=== PATIENT | female | born 1960 | race Caucasian/White ===

== ENCOUNTER 2017-12-13 00:11 | Outpatient (CLI) | payer BC, SELFPAY ==
--- NOTE | 2017-12-13 16:00 | DI.MAMMO_ITS ---
SYMPTOMS/DIAGNOSIS: BREAST CANCER SCREENING MAMMOGRAM: Mammograms were interpreted according to the usual protocol including computer analysis with CAD system, tomosynthesis and C view imaging. The breast tissue is of moderately dense fibroglandular densities. There is no dominant mass. There are no suspicious calcifications and there has been no significant interval change when compared with prior images. SUMMARY: No evidence of malignancy, category 1. Yearly screening mammography is recommended. Breast density category C. MQSA ASSESSMENT OF FINDINGS: Negative. Category 1. Patient will receive a letter notifying them of these results. Bi-RADS category C. The breasts are heterogeneously dense, which may obscure small masses.
== END 2017-12-13 00:31 ==
PROVIDERS: PCP Family Medicine; Visit Provider Nurse Practitioner Family
DX: Z12.31 Encounter for screening mammogram for malignant neoplasm of breast (principal)
CPT/HCPCS: 77063; 77067

== ENCOUNTER 2017-12-15 01:40 | Outpatient (CLI) | payer BC, SELFPAY ==
[2017-12-15 07:30] LABS: Abs Immature Grans 0.02 k/cumm (0.0-0.09); Absolute Basophil Count 0.03 k/cumm (0.0-0.2); Absolute Eosinophil Count 0.12 k/cumm (0.0-0.7); Absolute Lymphocyte Count 1.62 k/cumm (1.2-3.4); Absolute Monocyte Count 0.32 k/cumm (0.11-0.7); Absolute Neutrophil Count 3.66 k/cumm (1.2-6.7); Basophils % 0.5; Eosinophils % 2.1; HCT 41.5 % (36.0-46.0); HGB 13.6 g/dL (12.0-15.5); Immature Grans % 0.3; Lymphocytes % 28.1; Mean Corp. HGB Concentration 32.8 g/dL (32.0-36.0); Mean Corpuscular Volume 91.4 fL (80-95); Mean Platelet Volume 8.3 fL (8.0-11.0); Monocytes % 5.5; Neutrophils % 63.5; Platelet Count 333 x1000/uL (130-400); RBC 4.54 m/cumm (4.00-5.20); RBC Distribution Width 13.2 % (11.7-14.6); White Blood Cell Count 5.77 k/cumm (4.4-10.8)
[2017-12-15 07:53] LABS: Anion Gap 6.5 mmol/L (3-11); BUN 23 mg/dL (7-18); CO2 30.5 mmol/L (21.0-32.0); CREATININE 0.97 mg/dL (0.55-1.02); Calcium 9.4 mg/dL (8.5-10.1); Chloride 102 mmol/L (98-107); Estimated GFR 58.78 (mL/min/1.73m2); FREE T4 1.02 ng/dL (0.76-1.46); Glucose 100 mg/dL (70-100); Potassium 4.5 mmol/L (3.5-5.1); Sodium 139 mmol/L (136-145); TSH 1.35 uIU/mL (0.358-3.74)
[2017-12-15 08:11] LABS: Cholesterol 207 mg/dL (50-200); HDL Cholesterol 90 mg/dL (40-60); LDL CHOLESTEROL 109 mg/dL (<100); Triglyceride 57 mg/dL (30-150)
[2017-12-15 08:15] LABS: Hemoglobin A1C 5.6 % (4.5-6.2)
== END 2017-12-15 02:00 ==
PROVIDERS: PCP Family Medicine; Visit Provider Nurse Practitioner Family
DX: E05.00 Thyrotoxicosis with diffuse goiter without thyrotoxic crisis or storm (principal); Z00.00 Encounter for general adult medical examination without abnormal findings; Z86.39 Personal history of other endocrine, nutritional and metabolic disease
CPT/HCPCS: 36415; 80048; 80061; 83721; 83036; 84439; 84443; 85025

== ENCOUNTER 2019-01-29 01:04 | Outpatient (CLI) | payer BC, SELFPAY ==
--- NOTE | 2019-01-29 17:09 | DI.DEXA_ITS ---
EXAM: XR DEXA BONE DENSITY W/WO ANGELES INDICATION: Early menopause in her 20s, postmenopausal, Z78.0. COMPARISON: No exams were available for comparison TECHNIQUE: 2D digital imaging was performed. FINDINGS: The ANGELES image shows no evidence of compression fractures. The bone mineral density measurements of the lumbar spine correspond to a total T-score of -0.8, in the normal range. The bone mineral densit y measurements of the left hip correspond to a total T-score of -1.4 and a femoral neck T-score of -1 .9, in the osteopenic range. The left forearm bone mineral density measurements correspond to a T-sc ore of the distal 3rd of -1.3, consistent with osteopenia. IMPRESSION: Normal bone mineral density of the lumbar spine. Osteopenia of the left hip and left forearm.
== END 2019-01-29 01:24 ==
PROVIDERS: PCP Nurse Practitioner Family; Visit Provider Nurse Practitioner Family
DX: M85.88 Other specified disorders of bone density and structure, other site (principal); Z78.0 Asymptomatic menopausal state
CPT/HCPCS: 77080

== ENCOUNTER 2019-07-12 17:47 | Emergency (ER) | payer OTHER, SELFPAY ==
[2019-07-12 17:54] VITALS: BP 130/88; PULSE 73; RESP 14; TEMP 36.9; O2SAT 95
[2019-07-12] MEDS: Povidone-Iodine Soln. 118 ML BTL (18:15)
--- NOTE | 2019-07-12 18:43 | ED.GENADUL_ITS ---
Discharge Plan Disposition Patient Disposition: HOME Condition: Stable Discharge Details Chief Complaint: Laceration Clinical Impression: Laceration of toe of right foot Primary Care Provider: Sharee Hinojosa ED Provider: Rupali Petty Home Meds and New Rx's Prescriptions: No Action Shingrix (PF) 50 mcg/0.5 mL suspension for reconstitution 0.5 ml IM ONCE Qty: 1 RF: 0 amoxicillin-pot clavulanate [Augmentin] 500-125 mg tablet 1 tab PO TID Qty: 30 RF: 0 loratadine-pseudoephedrine [Claritin-D 24 Hour] 10-240 mg tablet extended release 24 hr 1 tab PO DAILY PRN (Reason: allergy symptoms) RF: 0 Women's Daily Formula 1 EACH tablet 1 tab-cap PO DAILY RF: 0 calcium carbonate-vitamin D3 [Caltrate with Vitamin D3] 1 EACH tablet 1 ea PO BID RF: 0 doxycycline hyclate 100 mg capsule 100 mg PO BID Qty: 20 RF: 0 Discharge Instructions Instructions: Laceration (ED) Additional Instructions: Leave initial dressing in place for 24 hours. Then begin washing area with soap and water once or twice daily. Pat dry completely or allow to air dry. Apply topical antibiotic ointment and keep it dressed with either gauze or Band- Aid. Suture removal in 10 days. Be aware that you do have a partial tendon injury. For any weakness or difficulty moving the toe please have prompt reevaluation with orthopedics as discussed. Observe for any signs of infection, redness, swelling, pain or drainage. Return for any concerns of infection. Return for any worsening or concerns sooner if needed Referrals: Omar Horn MD [ [facility] STAFF PHYSICIAN] - Medical Decision Making 58-year-old patient presents with a right dorsal fifth toe laceration. Wound does have notable deep extension with partial laceration of the tendon however no focal weakness is noted with range of motion of the digit. Sensation is intact distally. Patient's tetanus is up-to-date. Injury occurred prior to arrival. Recommended x-ray to rule out glass. Patient declines, would prefer to return for any painful symptoms or lack of improvement. She has an extremely low suspicion of glass as there was a single piece of intact glass which lac erated her foot. Patient consents to sutures. Wound prepped, Betadine used, lidocaine 1% for local housing management representative, well-tolerated, wound extensively irrigated, wound explored and noted partial tendon injury. Range of motion remains intact. 4 sutures to close 2 cm linear laceration. Wound edges well approximated. Wound dressed. Plan for discharge. Discussed wound care, conservative treatments, wound management, concerns of partial tendon injury as well as plan for follow-up. Patient agrees with plan of care. Was provided orthopedic referral for any noted weakness as discussed. Patient agrees this plan of care. The patient was stable and requested discharge. Prior to discharge, my usual and customary return precautions were reviewed with the patient - this included follow-up instructions and reasons to return to the Emergency Department if conditions worsens, does not improve as expected, or other new concerns arise. HPI General Date/Time Provider Initiated Documentation: 07/12/19 17:51 . HPI Narrative: This is a 58-year-old woman presenting the emergency room with complaints of right fifth toe laceration. Patient sustained laceration to the dorsal aspect of the fifth toe. Patient is a 2 cm linear laceration. Denies any weakness, numbness or tingling. Patient reports a sharp edge of a broken piece of glass in a trash bag lacerated her foot when she was moving the trash bag. Patient reports injury occurred prior to arrival. Tetanus up-to-date in 2016. Patient able to ambulate on the foot without difficulty. Patient has no other concerns or complaints. Denies any other injuries. Bleeding controlled with Steri- Strips. Related Data Home Medications Medication Instructions Recorded Confirmed calcium carbonate-vitamin D3 1 ea PO BID 04/30/13 02/02/19 [Caltrate 600 + D Tablet] ohgyxzwjiabj-Yq-cebx-minerals 1 tab-cap PO DAILY tab-cap 04/30/13 02/02/19 [Women's Daily Formula] loratadine-pseudoephedrine ER 10 1 tab PO DAILY PRN 12/22/18 02/02/19 mg-240 mg tablet,extended [id number] varicella-zoster gE-AS01B (PF) 50 0.5 ml IM ONCE #1 each 12/22/18 02/02/19 mcg/0.5 mL IM susp, kit amoxicillin 500 mg-potassium 1 tab PO TID #30 tab 02/02/19 02/02/19 clavulanate 125 mg tablet doxycycline hyclate 100 mg capsule 100 mg PO BID #20 cap 02/20/19 Previous Rx's Medication Instructions Recorded varicella-zoster gE-AS01B (PF) 50 0.5 ml IM ONCE #1 each 12/22/18 mcg/0.5 mL IM susp, kit amoxicillin 500 mg-potassium 1 tab PO TID #30 tab 02/02/19 clavulanate 125 mg tablet doxycycline hyclate 100 mg capsule 100 mg PO BID #20 cap 02/20/19 Allergies Allergy/AdvReac Type Severity Reaction Status Date / Time Sulfa (Sulfonamide Allergy Intermediate Skin Rash Unverified 07/12/19 17:54 Antibiotics) General Stated Complaint: Laceration JUSTIN: 4 Review of Systems All systems reviewed & are unremarkable except as noted in HPI and below Constitutional Constitutional: Denies chills, Denies fever(s) and Denies weakness Musculoskeletal Musculoskeletal: Denies deformity, Denies arthralgias, Denies joint swelling, Denies numbness, Denies radiating pain into limb and Denies tingling Integumentary/Breasts Skin/Breast: Reports wounds Neurologic Neurologic: Denies numbness, Denies tingling, Denies paresthesias and Denies w eakness [facility] Medical History Chronic low back pain (Chronic) Graves disease (Resolved ~1993) In remission since late Herpes zoster (Resolved) Hyperlipidemia (Chronic) Ocular migraine (Inactive) Osteopenia (Chronic) DEXA 01/2019 Surgical History History of dental surgery (Inactive ~08/2017) Torus removal S/P laparoscopic hysterectomy (Acute) Social History Smoking/Tobacco Use Status: Former Tobacco Use Quit Date: 02/14/84 Pack-years: 9 Second Hand Exposure: Yes Alcohol Intake: current Alcohol Intake frequency: a few times a week Alcohol type: beer and wine Drug use: Rarely Substance use type: marijuana Caregiver/Support person: No Household members: family and children Housing: house Communication Needs: None Do you need help understanding health information?: Rarely current occupation: [employer] Pets and animals: No Sexually active: Yes Do you think of yourself as: straight/heterosexual Current gender identity: female What is your relationship status?: How often do you talk on the phone with friends or family?: once per week How often do you get together with friends or relatives?: three or more times per week How often do you attend zoroastrianism or jew services?: decline to answer Do you belong to any clubs or organized social groups?: no Panel score (0-1 are the most socially isolated patients): 1 What type of physical activity do you participate in: other Details: BOOT CAMP Duration: 45-60 minutes/day Frequency: 1-2 times per week Kayla/Mosque: No preference Special kayla needs: No Seatbelt use: always Helmet use: Yes Helmet use: always Drive intox or ride w/intox street flusher driver: No Do you feel safe at home: Yes Do you feel safe in your relationship?: Yes History History 2 Para 2 Hx # Term Pregnancies Multiple births Hx # Pregnancies Ectopic pregnancies AB induced Hx Number of Living Children 2 AB spontaneous Exam Narrative Exam Narrative: CONST: Healthy appearing patient, in no acute distress. Well hydrated. Alert and oriented. HENMT: Head nomocephalic, normal to inspection. Atraumatic. Hearing grossly normal. EYES: General normal appearance. Alignment normal. Eyelids normal. Conjunctiva normal. NECK: Normal visual inspection. FROM. Trachea midline. No Midline tenderness. CHEST: Normal insepection of the chest. RESP: Normal respiratory effort. Speaking full sentences. No cough. No audible wheezing. No retractions. CARDIO: No JVD. MUSCULOSKELETAL: Normal Gait. FROM of all extremities. Laceration noted to the dorsal aspect of the right fifth toe. A 2 cm linear laceration. Full range of motion. Flexion and extension intact with strength. No focal weakness. Sensation intact distally on the medial and lateral aspects of digit. Bleeding controlled. Mild pain with palpation of the site. Cap refill normal distally SKIN: Normal. Dry. No rashes. See above description NEURO: Alert and awake. Speech clear. PSYCH: Normal affect. Cooperative. Course Vital Signs Vital signs: Vital Signs Temperature 36.9 C 07/12/19 17:54 Pulse 73 07/12/19 17:54 Respiratory Rate 14 07/12/19 17:54 Blood Pressure 130/88 07/12/19 17:54 Pulse Oximetry 95 07/12/19 17:54 Temperature 36.9 C 07/12/19 17:54 Temperature Source Tympanic 07/12/19 17:54 Pulse 73 07/12/19 17:54 Respiratory Rate 14 07/12/19 17:54 Respiratory Effort 07/12/19 18:01 Blood Pressure 130/88 07/12/19 17:54 Blood Pressure Position Sitting 07/12/19 17:54 Pulse Oximetry 95 07/12/19 17:54 Oxygen Delivery Method Room Air 07/12/19 17:54 Oxygen Flow Rate 0 07/12/19 17:54 Pain Level 2 07/12/19 17:54 Comment 07/12/19 17:54 Procedures Laceration Laceration 1: Site: lower extremity (5th toe) Side (If applicable): right Size (cm): 2 Description: linear Depth: simple, single layer Local Anesthetic: Lidocaine 1% Amount of anesthesia used (mL): 2 Pre-repair: wound explored, irrigated extensively and deep structures inta ct (Partial laceration of the extensor tendon of the fifth toe) Skin layer closed with: other (prolene) Size (cm): 4-0 Number of sutures: 4
[2019-07-12] MEDS: Bacitracin 1 PACKET TP (18:55)
== END 2019-07-12 19:10 | disposition home or self-care (01) ==
LOC: ER 19:04
PROVIDERS: Emergency Provider Physician Assistant; PCP Nurse Practitioner Family
DX: S91.114A Laceration without foreign body of right lesser toe(s) without damage to nail, initial encounter (principal); S96.921A Laceration of unspecified muscle and tendon at ankle and foot level, right foot, initial encounter; W25.XXXA Contact with sharp glass, initial encounter
CPT/HCPCS: 12001

== ENCOUNTER 2019-12-17 10:52 | Outpatient (CLI) | payer OTHER, SELFPAY ==
[2019-12-21 18:46] LABS: Patient Race White; SARS-CoV-2 RNA Undetected (Undetected); SARS-CoV-2 Specimen Source Nasal
== END 2019-12-17 11:12 ==
PROVIDERS: PCP Nurse Practitioner Family; Visit Provider Nurse Practitioner Family
DX: Z11.59 Encounter for screening for other viral diseases (principal); Z20.828 Contact with and (suspected) exposure to other viral communicable diseases
CPT/HCPCS: U0003

== ENCOUNTER 2020-04-11 02:20 | Outpatient (CLI) | payer OTHER, SELFPAY ==
[2020-04-11 09:28] LABS: BUN 18 mg/dL (7-18); CREATININE 0.9 mg/dL (0.55-1.02); Calcium 9.2 mg/dL (8.5-10.1); Calculated LDL 91 mg/dL (<100); Chloride 103 mmol/L (98-107); Cholesterol 202 mg/dL (<200); Glucose 103 mg/dL (74-106); HDL Cholesterol 100 mg/dL (40-60); Potassium 4.4 mmol/L (3.5-5.1); Sodium 138 mmol/L (136-145); TSH 1.12 uIU/mL (0.36-3.74); Triglyceride 57 mg/dL (<150)
[2020-04-11 09:44] LABS: FREE T4 0.86 ng/dL (0.76-1.46)
== END 2020-04-11 02:21 | disposition home or self-care (01) ==
LOC: LBO 02:20
PROVIDERS: PCP Nurse Practitioner Family; Visit Provider Nurse Practitioner Family
DX: E78.5 Hyperlipidemia, unspecified (principal); E05.00 Thyrotoxicosis with diffuse goiter without thyrotoxic crisis or storm; Z00.00 Encounter for general adult medical examination without abnormal findings
CPT/HCPCS: 36415; 80048; 80061; 84439; 84443

== ENCOUNTER 2020-04-11 03:04 | Outpatient (CLI) | payer OTHER, SELFPAY ==
--- NOTE | 2020-04-11 13:24 | DI.MAMMO_ITS ---
EXAM: MAMMO SCREENING CLINICAL HISTORY: screening,Z12.39 TECHNIQUE: Mammograms were interpreted according to the usual protocol including computer analysis w [employer] CAD system, tomosynthesis and C-view imaging. COMPARISON: 2011 through 2017 FINDINGS: The breasts are composed of heterogeneously dense fibroglandular densities, Breast Density category C . No suspicious masses or suspicious microcalcifications are seen. No skin thickening or abnormal axillary lymph nodes are seen. There has been no significant change from prior exams. There is mild motion on the left MLO view. The patient returned should return refer repeat left MLO view no additional charge. IMPRESSION: BI-RADS Cat 0 - Assessment Incomplete: Need additional imaging evaluation Yearly screening mammography is recommended. Breast Density Category C, heterogeneously Dense. The mammogram demonstrates the patient's breast tissue is dense. Dense breast tissue is very common a nd is not abnormal but dense breast tissue can make it harder to find cancer on a mammogram. Also, de nse breast tissue may increase breast cancer risk. This information about the result of the mammogram report was provided to the patient to raise their awareness. Use this report when you speak with the patient about their risks for breast cancer, which includes their family history. At that time, you may recommend additional screening tests (Ultrasound or MRI) as they might be useful based on their r isk. A negative radiographic report should not delay biopsy if a dominant or clinically suspicious mass is present. Up to ten percent of cancers are not identified on mammography. A negative report may reinforce clinical impression. Adenosis and dense breasts may obscure an underlying neoplasm. False positive reports average 6 to 10%.
== END 2020-04-11 03:05 ==
LOC: DI 03:04
PROVIDERS: PCP Nurse Practitioner Family; Visit Provider Nurse Practitioner Family
DX: Z12.31 Encounter for screening mammogram for malignant neoplasm of breast (principal); R92.8 Other abnormal and inconclusive findings on diagnostic imaging of breast
CPT/HCPCS: 77063; 77067

== ENCOUNTER 2020-04-16 01:14 | Outpatient (CLI) | payer OTHER, SELFPAY ==
--- NOTE | 2020-04-16 14:10 | DI.MAMMO_ITS ---
EXAM: MG MAMMO SCREEN CALL BACK UNI CLINICAL HISTORY: F/U 04/11 REPEAT VIEW FOR MOTION. TECHNIQUE: Mediolateral oblique Full Field Digital Mammography views of the left breast with Compute r Aided Diagnosis. COMPARISON: Priors available for comparison FINDINGS: Mammography/Tomosynthesis: Masses/Architectural Distortion: None seen. Microcalcifictions: No suspicious pleomorphic-type are seen. Skin Thickening/Nipple Retraction: None. IMPRESSION: 1. No evidence of malignancy is noted. 2. Unless there is more urgent need, follow-up screening mammography is recommended, as per [place] [employer] guidelines. 3. The findings were discussed with the patient on the date of the examination. BI-RADS Category 1 - Negative Breast Density - Category C - Heterogeneously dense Breast density Category C or D implies that the patient has dense breast tissue. Dense breast tissue can make it harder to find cancer on a mammogram. Dense breast tissue is also associated with an incr eased risk of breast cancer. This information about the result of the mammogram report was provided to the patient to raise their awareness. Use this report when you speak with the patient about their risks for breast cancer, which includes their family history. At that time, you may recommend additional screening tests (Ultrasoun d or MRI) as these tests may add significant information. A negative radiographic report should not delay biopsy if a dominant or clinically suspicious mass is present. Up to ten percent of cancers are not identified on mammography. A negative report may reinforce clinical impression. Adenosis and dense breasts may obscure an underlying neoplasm. False positive reports average 6 to 10%. Patient will receive a letter notifying them of these results.
== END 2020-04-16 01:34 ==
PROVIDERS: PCP Nurse Practitioner Family; Visit Provider Nurse Practitioner Family
DX: R92.8 Other abnormal and inconclusive findings on diagnostic imaging of breast (principal)
CPT/HCPCS: 77063; 77067

== ENCOUNTER 2021-01-30 03:17 | Outpatient (CLI) | payer OTHER, SELFPAY ==
[2021-01-30 13:18] LABS: Anion Gap 7.4 mmol/L (3-11); BUN 25 mg/dL (7-18); CO2 31.6 mmol/L (21.0-32.0); CREATININE 0.9 mg/dL (0.55-1.02); Calcium 9.3 mg/dL (8.5-10.1); Chloride 98 mmol/L (98-107); Glucose 102 mg/dL (74-106); Potassium 3.7 mmol/L (3.5-5.1); Sodium 137 mmol/L (136-145)
== END 2021-01-30 03:18 | disposition home or self-care (01) ==
LOC: LBO 03:17
PROVIDERS: PCP Nurse Practitioner Family; Visit Provider Nurse Practitioner Family
DX: I10 Essential (primary) hypertension (principal)
CPT/HCPCS: 36415; 80048

== ENCOUNTER 2021-04-29 18:11 | Emergency (ER) | payer BC, SELFPAY ==
[2021-04-29] VITALS (19 sets, daily range): BP systolic 97–121; BP diastolic 71–85; PULSE 94–115; RESP 18–32; TEMP 37–37.2; O2SAT 93–97
--- NOTE | 2021-04-29 18:15 | RT.EKG_ITS ---
APPROVED REPORT Exam: Resting ECG Reason for Exam: Dizzy, Vomiting Patient Location: E HR:103 bpm ECG Measurements Heart Rate 103 AXIS IL 145 P -8 QRSd 77 QRS -17 QT 344 T 26 QTc 452 Conclusion Sinus tachycardia...rate> 99
--- NOTE | 2021-04-29 18:47 | W.ED.GENAD ---
Discharge Plan Disposition Patient Disposition: HOME Condition: Stable Discharge Details Clinical Impression: Dizziness Primary Care Provider: Sharee Hinojosa ED Provider: Dipti Osborn Home Meds and New Rx's Prescriptions: Continued losartan 100 mg tablet 100 mg PO DAILY Qty: 90 4RF Rx Instructions: Take 1 tablet daily chlorthalidone 25 mg tablet 25 mg PO DAILY Qty: 90 4RF Rx Instructions: Take 1 tab daily loratadine-pseudoephedrine [Claritin-D 24 Hour] 10-240 mg tablet extended release 24 hr 1 tab PO DAILY PRN (Reason: allergy symptoms) 0RF Women's Daily Formula 1 EACH tablet 1 tab-cap PO DAILY 0RF calcium carbonate-vitamin D3 [Caltrate with Vitamin D3] 1 EACH tablet 1 ea PO BID 0RF Discharge Instructions Instructions: Dizziness (ED) Additional Instructions: At this time lab results show dehydration, slight elevation of your BUN and creatinine which are your kidney functions. Potassium was slightly low at 3.3. Please follow up with primary care provider in 3-5 days. Return to ED sooner if any worsening or concerns. Increase oral fluids. Please return to the ER for any fever, worsening dizziness worsening nausea. Referrals: Sharee Hinojosa, [employer] [Primary Care Provider] - 3 days Medical Decision Making 60-year-old female presents to the ER with chief complaint of dizziness, nausea and reportedly had a low blood pressure reading earlier this afternoon. She reports that it was 90 systolic. She states that she then laid down on the couch and became nauseous. She denies any chest pain, shortness of breath, fever chills, problems urinating. Denies any nausea vomiting diarrhea. Denies any blurry vision or double vision. She reports dizziness is intermittent and mostly when moving around. She alert and oriented x3. She does have a past medical history of hypertension which she takes losartan hydrochlorothiazide for, hyperlipidemia, Graves' disease. Cardiac work-up ordered including serial troponins and a TSH. EKG ordered. EKG was reviewed by Dr. Avery ER attending, please see his official report and review. Differential diagnosis includes but not limited to coronary artery disease, dehydration, thyroid, vertigo. CBC shows no leukocytosis, absolute neutrophils 8.69, sodium 142, potassium slightly low at 3.3, BUN elevated at 42 creatinine 1.3 GFR is 41, glucose 122, initial troponin within normal limits. TSH and urinalysis is pending at this time. Patient does take 100 mg of losartan along with a thiazide diuretic which could attribute to patient dehydration elevated BUN and creatinine. TSH within normal limits, urinalysis shows trace leukocytes however there is squamous contamination culture is not pending at this time. I did discuss initial labs with patient and family who verbalized understanding. I did offer head CT for the second time which patient declined at this time. I instructed to have close follow-up with PCP and return if any symptoms worsen or return patient verbalized understanding. Patient remained hemodynamically stable throughout stay. Orthostatics were done and at discharge blood pressure is 107/73. Patient received 500 cc normal saline bolus and 40 mEq potassium p.o. This text was generated using [employer] system, please disregard any oddities of phrase or misspellings. HPI General Mode of arrival: ambulatory. Date/Time Provider Initiated Documentation: 04/29/21 18:17. Limitations to Documentation: no limitations. Information obtained by: patient, RN notes reviewed and old records reviewed. HPI Narrative: 60-year-old female presents to the ER with chief complaint of dizziness, nausea and reportedly had a low blood pressure reading earlier this afternoon. She reports that it was 90 systolic. She states that she then laid down on the couch and became nauseous. She denies any chest pain, shortness of breath, fever chills, problems urinating. Denies any nausea vomiting diarrhea. Denies any blurry vision or double vision. She reports dizziness is intermittent and mostly when moving around. She alert and oriented x3. She does have a past medical history of hypertension which she takes losartan hydrochlorothiazide for, hyperlipidemia, Graves' disease. Related Data Home Medications Medication Instructions Recorded Confirmed calcium carbonate 600 mg-vitamin 1 ea PO BID 04/30/13 04/09/21 D3 20 mcg (800 unit) tablet (Caltrate with Vitamin D3) [id number]-[id number] 27 1 tab-cap PO DAILY tab-cap 04/30/13 04/09/21 mg-0.4 mg tablet (Women's Daily Formula) loratadine-pseudoephedrine ER 10 1 tab PO DAILY PRN 12/22/18 04/09/21 mg-240 mg tablet,extended [id number] (Claritin-D 24 Hour) losartan 100 mg tablet 100 mg PO DAILY #90 tab 08/08/20 04/29/21 chlorthalidone 25 mg tablet 25 mg PO DAILY #90 tab 01/23/21 04/29/21 Previous Rx's Medication Instructions Recorded losartan 100 mg tablet 100 mg PO DAILY #90 tab 08/08/20 chlorthalidone 25 mg tablet 25 mg PO DAILY #90 tab 01/23/21 Allergies Allergy/AdvReac Type Severity Reaction Status Date / Time Sulfa (Sulfonamide Allergy Intermediate Skin Rash Verified 04/29/21 20:09 Antibiotics) General Stated Complaint: Dizzy/Sync JUSTIN: 3 Review of Systems All systems reviewed & are unremarkable except as noted in HPI and below Constitutional Constitutional: Denies headache(s) Eyes Eyes: Denies blurry vision, Denies change in vision, Denies loss of vision and Denies spots in vision ENT Ears, Nose, Mouth, and Throat: Reports dizziness, Denies headache(s) and Denies disequilibrium Cardiovascular Cardiovascular: Denies chest pain, Denies syncope, Denies irregular heart rhythm, Reports lightheadedness, Denies radiating jaw, neck or arm pain and Denies dyspnea Respiratory Respiratory: Denies cough and Denies dyspnea Gastrointestinal Gastrointestinal: Denies diarrhea, Denies nausea and Denies vomiting Genitourinary Genitourinary: Denies dysuria Musculoskeletal Musculoskeletal: Denies numbness Neurologic Neurologic: Reports as per HPI, Denies abnormal speech, Denies confusion, Reports dizziness, Denies syncope, Denies headache(s), Denies loss of vision, Denies memory loss, Denies numbness, Denies convulsions, Denies tremor(s) and Denies disequilibrium Psychiatric Psychiatric: Denies confusion and Denies memory loss PFSH All Active Problems (Updated 04/29/21 @ 20:17 by Dipti Osborn) Dizziness (Acute) COVID-19 (Acute ~03/28/21) Essential hypertension (Chronic) Osteopenia (Chronic) DEXA 01/2019 Hyperlipidemia (Chronic) Ocular migraine (Chronic) History of Graves' disease (Chronic) Chronic low back pain (Chronic) Medical History Graves disease (~1993) In remission since late Herpes zoster Surgical History History of dental surgery (~08/2017) Torus removal S/P laparoscopic hysterectomy Family History Mother Hyperlipidemia Ulcerative colitis Hypertension Father , at 83 of stroke Heart disease Hyperlipidemia Stroke Hypertension Type 2 diabetes mellitus Sister , At 60 from COPD complications COPD (chronic obstructive pulmonary disease) Type 2 diabetes mellitus Hypertension Brother Hyperlipidemia Type 2 diabetes mellitus Hypertension Son Depression PTSD (post-traumatic stress disorder) Daughter No problems noted. Maternal Grandfather , of [place] Heart disease Myocardial infarction Maternal Grandmother Hypertension Type 2 diabetes mellitus Paternal Grandfather No problems noted. 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 Pets and animals: No Sexually active: Yes Do you think of yourself as: straight/heterosexual Current gender identity: female What is your relationship status?: How often do you talk on the phone with friends or family?: twice per week How often do you get together with friends or relatives?: twice per week How often do you attend yazidism or druze services?: 1-3 times per year Do you belong to any clubs or organized social groups?: no Panel score (0-1 are the most socially isolated patients): 1 What type of physical activity do you participate in: walking Duration: 15-30 minutes/day Frequency: 1-2 times per week Kayla/Orthodoxy: Lutheran Special kayla needs: No Seatbelt use: always Helmet use: Yes Helmet use: always Drive intox or ride w/intox after school driver: No Do you feel safe at home: Yes Do you feel safe in your relationship?: Yes History History 2 Para 2 Hx # Term Pregnancies Multiple births Hx # Pregnancies Ectopic pregnancies AB induced Hx Number of Living Children 2 AB spontaneous Exam Narrative Exam Narrative: Constitutional: Alert and oriented x3. Appears stated age. Normal body habitus. Head: Normocephalic, no trauma. Eyes: Pupils PERRL, Red reflex noted, EOM's intact. Eyelids symmetrical without lesions, discharge, or swelling. ENT: Bilateral TM's WNL, External ear normal to inspection, no mastoid TTP, swelling, or erythema, Nasal turbinates WNL, no nasal discharge. Normal dentition, Posterior pharynx WNL, no exudate. Chest: RRR, Normal S1, S2, distal pulses intact. Resp: Lungs clear to auscultation bilaterally, no wheezes, rales, or rhonchi. Abdomen: Soft, non-distended, Normoactive bowel sounds all 4 quads. Musculoskeletal: Normal gait, 5/5 strength to all four extremities. Skin: No suspicious rashes or lesions. Capillary refill less than 2 sec. Neurologic: Cranial nerves II-XII intact. Alert and oriented x 3. Motor: No deficits noted. Sensory: Intact bilaterally all 4 extremities. Reflexes: DTR's intact bilaterally.. Hematologic/Lymphatic: No ecchymosis, no lymphadenopathy. Course Vital Signs Vital signs: Vital Signs Temperature 37 C 04/29/21 18:26 Pulse 110 H 04/29/21 18:26 Respiratory Rate 18 04/29/21 18:26 Blood Pressure 121/71 04/29/21 18:26 Pulse Oximetry 94 04/29/21 18:26 Temperature 37 C 04/29/21 18:26 Temperature Source Tympanic 04/29/21 18:26 Pulse 110 H 04/29/21 18:26 Respiratory Rate 18 04/29/21 18:26 Respiratory Effort 04/29/21 18:30 Respiratory Depth Normal 04/29/21 18:30 Respiratory Pattern Normal 04/29/21 18:30 Blood Pressure 121/71 04/29/21 18:26 Blood Pressure Position Supine 04/29/21 18:26 Pulse Oximetry 94 04/29/21 18:26 Oxygen Delivery Method Room Air 04/29/21 18:26 Oxygen Flow Rate 0 04/29/21 18:26 Pain Level 0 04/29/21 18:26
[2021-04-29 19:09] LABS: Abs Immature Grans 0.05 10^3/uL (0.0-0.06); Absolute Basophil Count 0.03 10^3/uL (0.0-0.2); Absolute Eosinophil Count 0.02 10^3/uL (0.0-0.7); Absolute Lymphocyte Count 0.41 10^3/uL (1.2-3.4); Absolute Monocyte Count 0.14 10^3/uL (0.1-0.8); Absolute Neutrophil Count 8.69 10^3/uL (1.2-6.7); Basophils % 0.3; Eosinophils % 0.2; HCT 39.4 % (36.0-46.0); HGB 13.2 g/dL (11.2-15.7); Immature Grans % 0.5; Lymphocytes % 4.4; MCH 31.1 pg (27.0-33.0); MCHC 33.5 % (32.0-36.0); MCV 92.9 fL (80-95); MPV 8.5 fL (8.0-11.0); Monocytes % 1.5; Neutrophils % 93.1; Nucleated RBC 0 %; Platelet Count 236 10^3/uL (130-400); RBC 4.24 10^6/uL (3.93-5.22); RDW 13.2 % (11.7-14.6); RDW-SD 44.9 fL; WBC 9.34 10^3/uL (4.4-10.8)
[2021-04-29 19:30] LABS: ALT 52 U/L (14-59); AST 40 U/L (15-37); Albumin 3.9 g/dL (3.4-5.0); Alkaline Phosphatase 71 U/L (46-116); Anion Gap 10.2 mmol/L (3-11); BUN 42 mg/dL (7-18); Bilirubin, Total 0.5 mg/dL (0.2-1.0); CO2 27.8 mmol/L (21.0-32.0); CREATININE 1.3 mg/dL (0.55-1.02); Calcium 9.5 mg/dL (8.5-10.1); Chloride 104 mmol/L (98-107); Glucose 122 mg/dL (74-106); Magnesium 1.9 mg/dL (1.8-2.4); Potassium 3.3 mmol/L (3.5-5.1); Sodium 142 mmol/L (136-145); Total Protein 7.2 g/dL (6.4-8.2); Troponin I < 50 ng/L (<or=60)
[2021-04-29 19:41] LABS: TSH (W/Ref FT4) 1.47 uIU/mL (0.36-3.74)
[2021-04-29] MEDS: Normal Saline 500 ML IV (19:42)
[2021-04-29] MEDS: Potassium Chloride 20 MEQ TABCR 40 MEQ PO (19:42)
[2021-04-29 19:48] LABS: Bilirubin Negative (Negative); Blood Negative (Negative); Clarity Sl Cloudy (Clear); Glucose Negative (Negative); Ketones Negative (Negative); Leukocyte Esterase Small (Negative); Nitrite Negative (Negative); Urobilinogen 0.2 EU/dL (Up TO 0.2); pH 6.5 (5-8)
[2021-04-29 19:57] LABS: RBC 0-2 HPF (0-2)
[2021-04-29 19:58] LABS: Bacteria Rare HPF (Negative); C & S Indicated? No/Sq. Contamination; Crystals Negative HPF (Negative); Epithelial Cells Many HPF (Negative); Mucus Negative (Negative); Other Cells Few Transitional (Negative)
== END 2021-04-29 20:30 | disposition home or self-care (01) ==
PROVIDERS: Emergency Provider Registered Nurse Emergency; PCP Nurse Practitioner Family
DX: R42 Dizziness and giddiness (principal); R11.0 Nausea; I10 Essential (primary) hypertension; Z86.16 Personal history of COVID-19; E87.6 Hypokalemia
CPT/HCPCS: 36415; 80053; 93005; 96360; 99284; 81003; 81015; 83735; 84443; 84484; 85025; 93010

== ENCOUNTER 2021-05-08 02:07 | Outpatient (CLI) | payer BC, SELFPAY ==
--- NOTE | 2021-05-08 06:45 | DI.DEXA_ITS ---
Exam(s) XR DEXA BONE DENSITY W/WO ANGELES EXAM: XR DEXA BONE DENSITY W/WO ANGELES CLINICAL HISTORY: Osteopenia,SCREENING FOR OSTEOPOROSIS IN POSTMENOPAUSAL WOMAN,Z78.0 TECHNIQUE: COMPARISON: CR XR DEXA BONE DENSITY W/WO ANGELES from 01/29/2019 FINDINGS: Lateral Spine Image: Unremarkable. No compression deformities identified. Left hip: Total T-Score: -1.2. This compares to -1.4 on the prior examination. There is an a been improvement of 2.1 percent in the bone mineral density. Total Z-Score: -0.1 T- and Z-scores: Findings are consistent with osteopenia. Lumbar Spine: Total T-Score: -0.6. This compares to -0.8 on the prior examination. This is an improvement a 2.4 pe rcent in the bone mineral density. Total Z-Score: 1.0 T- and Z-scores: Within normal limits. IMPRESSION: Slight improvement in the bone mineral density since 2019.
== END 2021-05-08 02:27 ==
PROVIDERS: PCP Nurse Practitioner Family; Visit Provider Nurse Practitioner Family
DX: M85.88 Other specified disorders of bone density and structure, other site (principal); Z78.0 Asymptomatic menopausal state; Z13.820 Encounter for screening for osteoporosis
CPT/HCPCS: 77080

== ENCOUNTER 2021-12-17 03:11 | Outpatient (CLI) | payer OTHER, SELFPAY ==
[2021-12-17 12:36] LABS: Alkaline Phosphatase 90 U/L (46-116); LDH 189 U/L (81-234)
[2021-12-17 12:50] LABS: ESR 4 mm/hr (0-30)
[2021-12-17 12:56] LABS: Abs Immature Grans 0.05 10^3/uL (0.0-0.06); Absolute Basophil Count 0.03 10^3/uL (0.0-0.2); Absolute Eosinophil Count 0.12 10^3/uL (0.0-0.7); Absolute Lymphocyte Count 2.05 10^3/uL (1.2-3.4); Absolute Monocyte Count 0.58 10^3/uL (0.1-0.8); Absolute Neutrophil Count 4.26 10^3/uL (1.2-6.7); Basophils % 0.4; Eosinophils % 1.7; HCT 39.2 % (36.0-46.0); HGB 12.9 g/dL (11.2-15.7); Immature Grans % 0.7; Lymphocytes % 28.9; MCH 31.3 pg (27.0-33.0); MCHC 32.9 % (32.0-36.0); MCV 95 fL (80-95); MPV 9.2 fL (8.0-11.0); Monocytes % 8.2; Neutrophils % 60.1; Platelet Count 287 10^3/uL (130-400); RBC 4.12 10^6/uL (3.93-5.22); RDW-SD 42.1 fL; WBC 7.09 10^3/uL (4.4-10.8)
== END 2021-12-17 03:12 | disposition home or self-care (01) ==
LOC: LOS 03:12
PROVIDERS: PCP Nurse Practitioner Family; Visit Provider Chiropractor
DX: M54.59 Other low back pain (principal)
CPT/HCPCS: 36415; 85652; 83615; 84075; 85025

== ENCOUNTER 2022-04-30 00:53 | Outpatient (CLI) | payer OTHER, SELFPAY ==
--- NOTE | 2022-04-30 07:35 | DI.MAMMO_ITS ---
Exam(s) MAMMO SCREENING EXAM: MAMMO SCREENING CLINICAL HISTORY: screening,z12.39 TECHNIQUE: Bilateral full field digital CC and MLO mammographic images were obtained with 3D tomosyn thesis and utilizing computer aided detection (CAD). COMPARISON: Available for comparison. FINDINGS: Masses/Architectural Distortion: None seen. Microcalcifications: No suspicious pleomorphic-type are seen. Skin Thickening/Nipple Retraction: None. IMPRESSION: 1. No significant interval change with no specific features of malignancy noted. 2. Unless there is more urgent need, screening mammography is recommended, as per [employer] guidelines. BI-RADS Category 1 - Negative Breast Density - Category C - Heterogeneously dense Breast density category C or D implies that the patient has dense breast tissue. Dense breast tissue is very common and is not abnormal but dense breast tissue can make it harder to find cancer on a ma mmogram. Also, dense breast tissue may increase their breast cancer risk. This information about the result of the mammogram report was provided to the patient to raise their awareness. Use this report when you speak with the patient about their risks for breast cancer, which includes their family hist ory. At that time, you may recommend for more screening tests (Ultrasound or MRI) as they might be us eful based on their risk. A negative radiographic report should not delay biopsy if a dominant or clinically suspicious mass is present. Up to ten percent of cancers are not identified on mammography. A negative report may reinforce clinical impression. Adenosis and dense breasts may obscure an underlying neoplasm. False positive reports average 6 to 10%. Patient will receive a letter notifying them of these results.
== END 2022-04-30 01:13 ==
LOC: DI 00:53
PROVIDERS: PCP Nurse Practitioner Family; Visit Provider Nurse Practitioner Family
DX: Z12.31 Encounter for screening mammogram for malignant neoplasm of breast (principal)
CPT/HCPCS: 77063; 77067

== ENCOUNTER 2022-04-30 02:13 | Outpatient (CLI) | payer OTHER, SELFPAY ==
[2022-04-30 08:41] LABS: Anion Gap 6.4 mmol/L (3-11); BUN 36 mg/dL (7-18); CO2 27.6 mmol/L (21.0-32.0); Calcium 9.3 mg/dL (8.5-10.1); Chloride 103 mmol/L (98-107); Glucose 117 mg/dL (74-106); Potassium 3.5 mmol/L (3.5-5.1); Sodium 137 mmol/L (136-145); TSH (W/Ref FT4) 0.93 uIU/mL (0.36-3.74)
[2022-04-30 10:04] LABS: Vitamin D 25 Total 39.9 ng/mL (30-100)
== END 2022-04-30 02:14 | disposition home or self-care (01) ==
LOC: LBO 02:13
PROVIDERS: PCP Nurse Practitioner Family; Visit Provider Nurse Practitioner Family
DX: I10 Essential (primary) hypertension (principal); M85.88 Other specified disorders of bone density and structure, other site; Z86.39 Personal history of other endocrine, nutritional and metabolic disease
CPT/HCPCS: 36415; 80048; 82306; 84443

== ENCOUNTER 2022-10-08 06:53 | Day surgery (SDC) | payer OTHER, SELFPAY ==
--- NOTE | 2022-10-07 19:35 | W.COLOREPORT ---
Date of service: 10/08/22 Time of Service: 08:54 Colonoscopy Report Date of procedure: 10/08/22 Pre-op diagnosis general: CRC screening Post-op diagnosis procedure note: other ( polyps and diverticula) Surgeon: Miladys Dickey Anesthesia Type: General:No Airway Estimated blood loss (mL): 1 Pathology: other Complications: None Disposition: same day Prep: Miralax/Dulcolax Retraction Time: 13 Procedure Description: After informed consent was obtained the patient was taken to the procedure room and placed in a left decubitous position. Monitors were applied and a time out was done. The patients name, date of , procedure, allergies to medications and metal in their body was reviewed. The patient was then sedated. Once sedated and comfortable a rectal exam was done. External exam was normal. Internal exam revealed a normal sphincter tone and no palpable masses. The scope was then introduced and retrofelexed. No internal hemorrhoids were identified. The scope was then advanced to the cecum without difficulty. The TI and appendiceal orifice were identified. The prep was BBPS 3 in the left and transverse colon and a BBPS 2 in the right colon for a total of 8.. The scope was then slowly retracted over 13 minutes back into the rectum. she has severe diverticulosis in the sigmoid colon. The diverticula do extend all the way over to the cecum. There are no signs of active bleeding or infection. She had multiple polyps removed. she had a 1 cm flat polyp removed at 70 cm with a cold snare. A clip was applied. She has a 0.75 cm pedunculated polyp at 90 cm that is removed with a cold snare. She had a 5 mm polyp at 60 cm that is removed with a cold forceps. She has a 0.75 pedunculated polyp at 20 cm that is removed with a cold snare. All specimen is retrieved and no bleeding is noted. The patient was woken up and taken back to Same day surgery in stable condition. The patient tolerated the procedure well and there were no immediate complications. Follow up: The patient should follow up in 3 years unless they develop changes in bowel habits or other new gastrointestinal complaints.
--- NOTE | 2022-10-07 19:36 | PDOC.DSDIS_ITS ---
Date of service: 10/08/22 Time of Service: 09:47 Discharge Plan Disposition Patient Disposition: Home Condition: Good Discharge Details Reason For Visit: colon scope Attending Provider: Miladys Dickey Primary Care Provider: Sharee Hinojosa Home Meds and New Rx's Prescriptions: Continued Claritin-D 24 Hour 10-240 mg tablet extended release 24 hr 1 tab PO DAILY PRN (Reason: allergy symptoms) Women's Daily Formula 1 EACH tablet 1 tab-cap PO DAILY calcium carbonate-vitamin D3 [Caltrate with Vitamin D3] 1 EACH tablet 1 ea PO BID losartan 100 mg tablet 100 mg PO DAILY Qty: 90 4RF Rx Instructions: Take 1 tablet daily chlorthalidone 25 mg tablet 25 mg PO DAILY Qty: 90 3RF Rx Instructions: Take 1 tab daily Discontinued polyethylene glycol 3350 17 gram/dose powder 238 g PO ONCE Qty: 238 0RF Rx Instructions: take per colonoscopy instructions bisacodyl [Dulcolax (bisacodyl)] 5 mg tablet,delayed release (DR/EC) 5 mg PO ONCE Qty: 4 0RF Rx Instructions: take per colonoscopy instructions Discharge Instructions Additional Instructions: DSU Colonoscopy Post- Op Instructions Instructions for Everyone who is given Anesthesia: For your safety, please do the following for the next twenty-four (24) hours: *Do Not operate a motor vehicle (car, truck, motorcycle, etc.) *Do Not drink alcoholic beverages or use any recreational drugs for the first 24 hours or while taking pain medications. The medications in your body may have a reaction that can be dangerous. *Do Not make any important decisions or sign any important papers. Findings: Severe diverticula make sure you are moving your bowels on a regular basis and straining to go to the bathroom. 12x3 polyps. My office will send you a letter in 2 to 3 weeks time with the results of the polyps and when we want you to repeat the colonoscopy, probably 3 to 5 years time. 1. No lifting over 20 pounds or strenuous activity for the first 24 hours after your procedure. After 24 hours there are no restrictions on your activity but you may feel fatigued for a few days. 2. After you arrive home you may have a light meal and return to your normal diet as you can tolerate it without feeling sick to your stomach. 3. You may have a bloated, gaseous feeling in your belly (abdomen) after a colonoscopy. Passing gas and belching will help. Walking or lying down on your left side with your knees flexed may relieve the discomfort. Call the office at [phone] (Office) or [phone] (Hospital) right away if you notice any of the following: a.Vomiting of blood or ?coffee ground stools?. b.Rectal bleeding 1Tbsp, blood clots or continuous bleeding. c.Severe belly (abdominal) pain. d.A hard distended belly (abdomen) and an inability to pass gas. 4. Please don?t expect to have a normal BM (bowel movement) for 2-3 days after your procedure. 5. If there are questions regarding the findings of your procedure, please contact your doctor 6. If you are unable to contact your doctor with a problem, contact the hospital at [phone]. 7. Continue all your regular medications unless directed otherwise. I understand the above instructions and have no questions. 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 The patient has been able to pass gas.? They are not having abdominal pain.? They have been able to tolerate liquids and a snack.? They do not have any nausea or vomiting.? They are not having any chest pain or shortness of breath.??? They are not having any rectal bleeding. Their vital signs have been stable-see nursing notes. We discussed findings during their colonoscopy, and any biopsies that were done/polyps that were removed. The patient will be sent a letter with any biopsy results, and when to repeat the colonoscopy.-see discharge instructions. Patient was given explicit instructions to follow-up regarding colonoscopy-refer to discharge instructions.? We reviewed resumption of medications. Patient verbalized understanding and discharged in stable and satisfactory condition- See nursing notes. (8) Diverticula of colon: Status: Acute (9) Adenomatous polyps: Status: Acute
[2022-10-08 07:16] VITALS: BP 134/98; PULSE 91; RESP 18; TEMP 36.2; O2SAT 98
[2022-10-08] MEDS: Lactated Ringers 1,000 ML 80 ML IV (07:35)
--- NOTE | 2022-10-08 08:00 | W.ANESPRE ---
General Info Date of Service Date Performed: 10/08/22 Height: 5 ft 6 in Weight: 89.1 kg Body Mass Index (BMI): 31.6 Surgical Procedure: Operation Date: 10/08/22 08:20 Proposed Procedure Side Surgeon p Colonoscopy Miladys Dickey DO Actual Procedure Side Surgeon p Colonoscopy Not Applicable Miladys Dickey DO Pre-Op Diagnosis Post-Op Diagnosis SCREENING SCREENING Meds Allergies and Home Medications Allergies Allergy/AdvReac Type Severity Reaction Status Date / Time Sulfa (Sulfonamide Allergy Intermediate Skin Rash Verified 10/07/22 09:46 Antibiotics) Home Medication Medication Instructions Recorded calcium carbonate 600 mg-vitamin 1 ea PO BID 04/30/13 D3 20 mcg (800 unit) tablet (Caltrate with Vitamin D3) iuiphrozcjjz-Vq-ctop-minerals 27 1 tab-cap PO DAILY 04/30/13 mg-0.4 mg tablet (Women's Daily Formula) loratadine-pseudoephedrine ER 10 1 tab PO DAILY PRN allergy symptoms 12/22/18 mg-240 mg tablet,extended [id number] (Claritin-D 24 Hour) losartan 100 mg tablet 100 mg PO DAILY #90 tabs 08/20/21 chlorthalidone 25 mg tablet 25 mg PO DAILY #90 tabs 01/20/22 Current Visit Medications: Current Medications Generic Name Dose Route Start Last Admin Trade Name Freq PRN Reason Stop Dose Admin Ringer's Solution 1,000 mls @ 80 mls/hr 10/08/22 06:00 10/08/22 07:35 IV 10/08/22 23:59 80 mls/hr INFUSION NATHALIA Administration IV Miscellaneous Supplies 1 each 10/08/22 06:00 Iv Access IV 10/08/22 23:59 DIRECTED NATHALIA Ondansetron HCl 4 mg 10/08/22 03:09 Ondansetron 4 Mg/2 Ml Vial IVP 11/07/22 03:08 Q4H PRN PRN Nausea / Vomiting Sodium Chloride 0 ml 10/08/22 06:00 Normal Saline Flush 10 Ml Syr IV 10/08/22 23:59 PRN PRN Sodium Chloride 0 ml 10/08/22 06:00 Normal Saline 10 Ml Vial IJ 10/08/22 23:59 DIRECTED PRN Sterile Water 0 ml 10/08/22 06:00 Water,Injection,Sterile 10 Ml Vial IJ 10/08/22 23:59 DIRECTED PRN PFSH Active Problems Active Problems: Problem Status Onset Code Screening for malignant neoplasm of colon performed Z12.11 Essential hypertension I10 Osteopenia M85.80 Hyperlipidemia E78.5 Ocular migraine G43.109 History of Graves' disease Z86.39 Degenerative joint disease (DJD) of lumbar spine M47.816 Chronic low back pain M54.5, G89.29 Medical History Medical History COVID-19 (~03/28/21) Graves disease (~1993) In remission since late Herpes zoster Medical History Comments:: pt reports during last colo at [facility] she required additional anesthesia as she was feeling the procedure Surgical History Surgical History History of dental surgery (~08/2017) Torus removal S/P laparoscopic hysterectomy Tobacco Smoking/Tobacco Use Status: Former Tobacco Use Passive smoking exposure: Yes Second hand exposure: Yes Alcohol Alcohol Intake: current Alcohol intake frequency: 0-2 drinks per day Alcohol type: beer and hard liquor Substance Use Substance use: Socially Substance use type: marijuana Prental History History 2 Para 2 Hx # Term Pregnancies Multiple births Hx # Pregnancies Ectopic pregnancies AB induced Hx Number of Living Children 2 AB spontaneous Vital Signs and Lab Results Vital Signs Most Recent Vital Signs in EMR: Most Recent Vital Signs Temp Pulse Resp BP Pulse Ox 36.2 C L 91 H 18 134/98 H 98 10/08/22 07:16 10/08/22 07:16 10/08/22 07:16 10/08/22 07:16 10/08/22 07:16 Lab Results Blood Type / Crossmatch: No Data to Display Complete Blood Count: No Data to Display Complete Metabolic Panel: No Data to Display Liver Function Panel: No Data to Display Coagulation Panel: No Data to Display Cardiac Panel: No Data to Display Arterial Blood Gas: No Data to Display Venous Blood Gas: No Data to Display Pancreas Panel: No Data to Display Thyroid Panel: No Data to Display Infectious Disease: No Data to Display Blood Cultures: No Data to Display Toxicology Panel: No Data to Display Anesthesia Assessment and Plan Anesthesia History Personal History: No History of Anesthesia Complications Family History: No Family History of Anesthesia Complications Exercise Tolerance Exercise Tolerance: Metabolic Equivalents>4 Pertinent Negatives Pertinent Negatives: No Symptoms of GERD, No Major Cardiovascular Symptoms or Complaints and No Major Pulmonary Symptoms or Complaints Cardiac & Pulmonary Exam Cardiac Exam: Normal S1/S2 Heart Sounds Pulmonary Exam: Clear Bilateral Breath Sounds and Rales Present Implantable Cardiac Device Does patient have a Pacemaker or an ICD?: No Airway Exam Known Difficult Airway: No Mallampati Class: 1 Mouth Opening: Normal (> 3cm) Thyromental Distance: Greater than 3 cm Neck Range of Motion: Full ROM Neck Circumference: Normal Teeth Condition: Normal Dentition ASA Classification ASA Score: ASA 2 Emergency Case?: No NPO Status NPO Status: NPO Clears >2 hours, Solids >8 hours Anesthesia Plan Resuscitation Status: Full Code Anesthesia Technique: General Anesthesia Airway Planned: Natural Airway Monitors Used: Standard Monitors
[2022-10-08 08:03] VITALS: BMI 31.6
--- NOTE | 2022-10-08 08:18 | BOWEL_PTH ---
PATIENT: Ember Lei LOC: [facility] U#:[id number] AGE/SX: 61/F ROOM: RE10/08/[address]: Miladys Dickey : 1960 BED: DIS: 10/08/2022 SPEC #: [id number] RECD: 10/08/22 12:58 STATUS: EVANS REQ #: [id number] RAMONA: 10/08/22 08:[address]: Miladys Dickey DEPT: Surgical Specimen RECD BY: Sarah Wells ENTERED: 10/08/22 12:59 SP TYPE: Bowel OTHR DR: KEMAR Villalba Tissues: 1 - BIOPSY BOWEL 2 - BIOPSY BOWEL 3 - BIOPSY BOWEL 4 - BIOPSY BOWEL Procedures: GROSS AND MICRO LEVEL 4 Comments: [id number]
[2022-10-08 08:49] VITALS: BP 99/82; PULSE 88; RESP 16; TEMP 36.2; O2SAT 94
[2022-10-08 09:12] VITALS: BP 112/92; PULSE 74; RESP 16; TEMP 36.3; O2SAT 95
--- NOTE | 2022-10-08 09:22 | W.ANESPOSTOP ---
Postoperative Evaluation Date, Time and Location Date Performed: 10/08/22 Time Performed: 09:05 Patient Location: Day Surgery Unit Vital Signs Most Recent Imported Vital Signs: Most Recent Vital Signs Temp Pulse Resp BP Pulse Ox 36.3 C L 74 16 112/92 H 95 10/08/22 09:12 10/08/22 09:12 10/08/22 09:12 10/08/22 09:12 10/08/22 09:12 Pain Score Most Recent Pain Score: Most Recent Pain Score Pain Level 0 10/08/22 09:12 Assessment Mental Status: Awake (Alert & Oriented to Patient Baseline) Airway and Respiratory Function: Patent airway with normal (patient baseline) respiratory exam Cardiovascular Function: Hemodynamically Stable Hydration Status: Adequately Hydrated Nausea & Vomiting: No Nausea or Vomiting Pain: Pt. Denies Any Pain Peripheral Nerve Block: Patient did not receive a nerve block
== END 2022-10-08 09:57 | disposition home or self-care (01) ==
PROVIDERS: PCP Nurse Practitioner Family; Visit Provider Surgery
PROC: 0DJD8ZZ Inspection of Lower Intestinal Tract, Via Natural or Artificial Opening Endoscopic (ICD-10-PCS; CPT 45378; principal; 2022-10-08 08:15)
DX: Z12.11 Encounter for screening for malignant neoplasm of colon; D12.3 Benign neoplasm of transverse colon; K57.30 Diverticulosis of large intestine without perforation or abscess without bleeding; D12.4 Benign neoplasm of descending colon
CPT/HCPCS: 45385; 45380; 88305; J1100; J1885; J2405; J2704

== ENCOUNTER 2023-07-07 05:17 | Outpatient (CLI) | payer OTHER, SELFPAY ==
[2023-07-07 13:02] LABS: Anion Gap 9.8 mmol/L (3-11); BUN 21 mg/dL (7-18); CO2 28.2 mmol/L (21.0-32.0); CREATININE 0.9 mg/dL (0.55-1.02); Calcium 9.1 mg/dL (8.5-10.1); Calculated LDL 78 mg/dL (<100); Chloride 94 mmol/L (98-107); Cholesterol 167 mg/dL (<200); Estimated GFR 71.39 (mL/min/1.73m2); Glucose 97 mg/dL (74-106); HDL Cholesterol 82 mg/dL (40-60); Potassium 3.3 mmol/L (3.5-5.1); Sodium 132 mmol/L (136-145); TSH (W/Ref FT4) 0.97 uIU/mL (0.36-3.74); Triglyceride 39 mg/dL (<150)
[2023-07-07 20:06] LABS: Hepatitis C Ab w Rflx HCV PCR Negative (Negative)
== END 2023-07-07 05:18 | disposition home or self-care (01) ==
LOC: LOS 05:17
PROVIDERS: PCP Nurse Practitioner Family; Visit Provider Nurse Practitioner Family
DX: Z00.00 Encounter for general adult medical examination without abnormal findings (principal); Z11.59 Encounter for screening for other viral diseases
CPT/HCPCS: 36415; 80048; 80061; 86803; 84443

== ENCOUNTER 2023-07-21 05:11 | Outpatient (CLI) | payer OTHER, SELFPAY ==
[2023-07-21 14:02] LABS: Anion Gap 10.3 mmol/L (3-11); BUN 25 mg/dL (7-18); CO2 28.7 mmol/L (21.0-32.0); Calcium 9.3 mg/dL (8.5-10.1); Chloride 97 mmol/L (98-107); Estimated GFR 62.91 (mL/min/1.73m2); Glucose 109 mg/dL (74-106); Potassium 3.1 mmol/L (3.5-5.1); Sodium 136 mmol/L (136-145)
== END 2023-07-21 05:12 | disposition home or self-care (01) ==
PROVIDERS: PCP Nurse Practitioner Family; Visit Provider Nurse Practitioner Family
DX: I10 Essential (primary) hypertension (principal)
CPT/HCPCS: 36415; 80048

== ENCOUNTER 2024-01-13 02:26 | Outpatient (CLI) | payer BC, SELFPAY ==
[2024-01-13 10:46] LABS: Anion Gap 10.2 mmol/L (3-11); BUN 19 mg/dL (7-18); CO2 26.8 mmol/L (21.0-32.0); CREATININE 0.9 mg/dL (0.55-1.02); Calcium 9.4 mg/dL (8.5-10.1); Chloride 102 mmol/L (98-107); Estimated GFR 70.95 (mL/min/1.73m2); Glucose 125 mg/dL (74-106); Sodium 139 mmol/L (136-145)
[2024-01-16 11:56] LABS: HIV-1/2 Ag & Ab Screen Negative (Negative)
[2024-01-16 12:21] LABS: HBs Antibody, Quant <3.1 mIU/mL (See Note); Hep B Surface Ab Negative (See Note); Hepatitis B Core Antibody Negative (Negative); Hepatitis B Surface Antigen Negative (Negative)
== END 2024-01-13 02:27 | disposition home or self-care (01) ==
PROVIDERS: PCP Nurse Practitioner Family; Visit Provider Nurse Practitioner Family
DX: I10 Essential (primary) hypertension (principal); Z11.59 Encounter for screening for other viral diseases; Z11.4 Encounter for screening for human immunodeficiency virus [HIV]
CPT/HCPCS: 36415; 80048; 86704; 86706; 87340; 87389

== ENCOUNTER 2024-08-02 00:43 | Outpatient (CLI) | payer BC, SELFPAY ==
--- NOTE | 2024-08-02 06:30 | DI.MAMMO_ITS ---
Exam(s) MAMMO SCREENING EXAM: MAMMO SCREENING CLINICAL HISTORY: screening,z12.39 TECHNIQUE: Bilateral full field digital CC and MLO mammographic images were obtained with 3D tomosynthesis and utilizing computer aided detection (CAD). COMPARISON: Comparison is made with prior examinations. FINDINGS: Masses/Architectural Distortion: No suspicious masses or areas of architectural distortion are present. Microcalcifications: No suspicious pleomorphic-type are seen. Skin Thickening/Nipple Retraction: None. IMPRESSION: 1. No significant interval change with no specific features of malignancy noted. 2. Unless there is more urgent need, screening mammography is recommended, as per [employer] guidelines. BI-RADS Category 1 - Negative Breast Density - Category C - The breast are heterogeneously dense, which may obscure small masses. Breast density Category C or D implies that the patient has dense breast tissue. Dense breast tissue can make it harder to find cancer on a mammogram. Dense breast tissue is also associated with an increased risk of breast cancer. This information about the result of the mammogram report was provided to the patient to raise their awareness. Use this report when you speak with the patient about their risks for breast cancer, which includes their family history. At that time, you may recommend additional screening tests (Ultrasound or MRI) as these tests may add significant information. A negative radiographic report should not delay biopsy if a dominant or clinically suspicious mass is present. Up to ten percent of cancers are not identified on mammography. A negative report may reinforce clinical impression. Adenosis and dense breasts may obscure an underlying neoplasm. False positive reports average 6 to 10%. Patient will receive a letter notifying them of these results.
--- NOTE | 2024-08-02 06:30 | DI.DEXA_ITS ---
Exam(s) XR DEXA BONE DENSITY W/WO ANGELES EXAM: XR DEXA BONE DENSITY W/WO ANGELES CLINICAL HISTORY: screening for osteoporosis in postmenopausal status,z78.0,osteopenia TECHNIQUE: COMPARISON: CR XR DEXA BONE DENSITY W/WO ANGELES from 05/08/2021 FINDINGS: Lateral Spine Image: Unremarkable. No compression deformities identified. Left hip: Total T-Score: -1.0. This compares to -1.2 on the prior examination. Total Z-Score: 0.2 T- and Z-scores: There is no evidence of osteoporosis. Lumbar Spine: Total T-Score: -0.1. This compares to -0.6 on the prior examination. Total Z-Score: 1.7 T- and Z-scores: Within normal limits. IMPRESSION: No evidence of osteoporosis.
== END 2024-08-02 01:03 ==
LOC: DI 00:43
PROVIDERS: PCP Nurse Practitioner Family; Visit Provider Nurse Practitioner Family
DX: Z12.31 Encounter for screening mammogram for malignant neoplasm of breast (principal); Z78.0 Asymptomatic menopausal state; M85.832 Other specified disorders of bone density and structure, left forearm; Z13.820 Encounter for screening for osteoporosis
CPT/HCPCS: 77063; 77067; 77080

== ENCOUNTER 2024-08-02 01:04 | Outpatient (CLI) | payer BC, SELFPAY ==
[2024-08-02 13:56] LABS: Anion Gap 10.3 mmol/L (3-11); BUN 23 mg/dL (7-18); CO2 24.7 mmol/L (21.0-32.0); CREATININE 0.7 mg/dL (0.55-1.02); Calcium 9.2 mg/dL (8.5-10.1); Calculated LDL 101 mg/dL (<100); Chloride 104 mmol/L (98-107); Cholesterol 205 mg/dL (<200); Estimated GFR 95.92 (mL/min/1.73m2); Glucose 110 mg/dL (74-106); HDL Cholesterol 97 mg/dL (>or=50); Potassium 4.4 mmol/L (3.5-5.1); Sodium 139 mmol/L (136-145); TSH (W/Ref FT4) 1.13 uIU/mL (0.36-3.74); Triglyceride 39 mg/dL (<150)
== END 2024-08-02 01:05 | disposition home or self-care (01) ==
LOC: LOS 01:04
PROVIDERS: PCP Nurse Practitioner Family; Visit Provider Nurse Practitioner Family
DX: Z00.00 Encounter for general adult medical examination without abnormal findings (principal); I10 Essential (primary) hypertension; Z86.39 Personal history of other endocrine, nutritional and metabolic disease; M85.832 Other specified disorders of bone density and structure, left forearm; E78.5 Hyperlipidemia, unspecified
CPT/HCPCS: 36415; 80048; 80061; 84443

== ENCOUNTER 2024-11-29 05:39 | Outpatient (CLI) | payer MEDICARE, BC, SELFPAY ==
--- NOTE | 2024-11-29 08:00 | DI.US_ITS ---
Exam(s) US SOFT TISSUE EXTREMITY EXAM: US SOFT TISSUE EXTREMITY CLINICAL HISTORY: right upper arm mobile painful nodule,? lipoma,m79.621,pain rt upper arm. TECHNIQUE: Ultrasound was performed using standard protocol. COMPARISON: No exams were available for comparison FINDINGS: Sonographic assessment utilizing grayscale and color Doppler imaging was performed and targeted to the area of clinical concern. Posterior arm was scanned, just above the level of the elbow. Palpable abnormality corresponds to a homogeneous, circumscribed, echogenic lesion, consistent with a lipoma. It measures 2.3 x 0.6 x 2.1 cm IMPRESSION: 2.3 centimeter lipoma corresponding to the palpable abnormality of the posterior arm. DATA REPOSITORY:
== END 2024-11-29 05:59 ==
LOC: DI 05:39
PROVIDERS: PCP Nurse Practitioner Family; Visit Provider Nurse Practitioner Family
DX: M79.621 Pain in right upper arm (principal); D17.21 Benign lipomatous neoplasm of skin and subcutaneous tissue of right arm
CPT/HCPCS: 76881

== ENCOUNTER → 2024-12-13 13:23 | Outpatient (BNVA) | payer MEDICARE, BC, SELFPAY | PROVIDERS: PCP Nurse Practitioner Family; Referring Provider Nurse Practitioner Family; Visit Provider Physical Therapy Assistant | DX: D17.21 Benign lipomatous neoplasm of skin and subcutaneous tissue of right arm (principal) | CPT/HCPCS: 99212 ==

== ENCOUNTER → 2025-01-02 10:47 | Outpatient (BNVA) | payer MEDICARE, BC, SELFPAY | PROVIDERS: PCP Nurse Practitioner Family; Referring Provider Nurse Practitioner Family; Visit Provider Physical Therapy Assistant | DX: D17.21 Benign lipomatous neoplasm of skin and subcutaneous tissue of right arm (principal) | CPT/HCPCS: 11402 ==

== ENCOUNTER → 2025-01-09 08:47 | Outpatient (BNVA) | payer MEDICARE, BC, SELFPAY | PROVIDERS: PCP Nurse Practitioner Family; Referring Provider Nurse Practitioner Family; Visit Provider Physical Therapy Assistant | DX: Z48.02 Encounter for removal of sutures (principal) ==